=== PATIENT | male | born 1970 | race American Indian/Alaskan Native ===

== ENCOUNTER 2017-06-20 10:03 | Emergency (ER) | payer SELFPAY ==
--- NOTE | 2017-06-20 10:54 | Emergency Department Report ---
Blank Doc - Documentation Documentation: Patient is a 47-year-old male with history of heart murmur. Patient presented to the ER complaining of left-sided chest pain and upper abdominal pain that started yesterday after he was working in his yard. Patient also presented with a right eye redness he is worried that a piece of wood get into his eye. He denies any visual loss. Chest pain protocol rule out MD or different. Patient will need further management.
--- NOTE | 2017-06-20 11:26 | XRay Report ---
Single chest: History: Chest pain. Findings: Normal cardiomediastinal silhouette. Trachea is midline. No consolidation, pneumothorax or pleural effusion. Impression: No acute cardiopulmonary findings.
[2017-06-20 11:39] LABS: Basophils % (Auto) 0.6 % (0.0-1.8); Eosinophils # (Auto) 0.4 K/mm3 (0.0-0.4); Eosinophils % (Auto) 5.5 % (0.0-4.3); Hematocrit 40.3 % (35.5-45.6); Hemoglobin 13.5 gm/dl (11.8-15.2); Lymphocytes # (Auto) 1.4 K/mm3 (1.2-5.4); Lymphocytes % (Auto) 20.4 % (13.4-35.0); Mean Corpuscular HGB Conc 33 % (32-34); Mean Corpuscular Hemoglobin 30 pg (28-32); Mean Corpuscular Volume 89 fl (84-94); Monocytes # (Auto) 0.5 K/mm3 (0.0-0.8); Platelet Count 248 K/mm3 (140-440); Red Blood Count 4.53 M/mm3 (3.65-5.03)
[2017-06-20 11:59] LABS: Alanine Aminotransferase 12 units/L (7-56); Albumin 3.9 g/dL (3.9-5); BUN/Creatinine Ratio 10; Blood Urea Nitrogen 9 mg/dL (9-20); Calcium 8.9 mg/dL (8.4-10.2); Hemolysis Index 15; Lipase 19 units/L (13-60)
[2017-06-20 15:35] LABS: Bilirubin,Urine NEG (Negative); Blood,Urine NEG (Negative); Color,Urine Yellow (Yellow); Mucus,Urine FEW /HPF; Protein,Urine <15 mg/dL mg/dL (Negative); Urobilinogen,Urine < 2.0 mg/dL (<2.0)
[2017-06-20 15:36] LABS: WBC,Urine < 1.0 /HPF (0.0-6.0)
[2017-06-20 15:43] LABS: Amphetamine Screen,Urine PRESUMPTIVE NEGATIVE; Benzodiazepines Screen,Urine PRESUMPTIVE NEGATIVE; Cannabinoid Screen,Urine PRESUMPTIVE NEGATIVE; Cocaine Screen,Urine PRESUMPTIVE NEGATIVE; Methadone Screen,Urine PRESUMPTIVE NEGATIVE; Opiate Screen,Urine PRESUMPTIVE NEGATIVE
[2017-06-20 15:59] VITALS: BP 122/78
--- NOTE | 2017-06-20 16:15 | Emergency Department Report ---
HPI <KARIDAWN - Last Filed: 06/20/17 17:16> - HPI HPI: Patient is a 47-year-old male with history of heart murmur. Patient presented to the ER complaining of left-sided chest pain and upper abdominal pain that started yesterday after he was working in his yard. Patient also presented with a right eye redness he is worried that a piece of wood get into his eye. He denies any visual loss. patient is currently pain free. <DOMJERARDO - Last Filed: 06/25/17 01:48> - General Chief Complaint: Chest Pain Time Seen by Provider: 06/20/17 10:35 ED Past Medical Hx <KARIDAWN - Last Filed: 06/20/17 17:16> - Past Medical History Previous Medical History?: No Hx Hypertension: No - Surgical History Past Surgical History?: No - Social History Smoking Status: Current Every Day Smoker Substance Use Type: Alcohol <DOMJERARDO - Last Filed: 06/25/17 01:48> - Medications Home Medications: Home Medications Medication Instructions Recorded Confirmed Last Taken Type Aspirin [Aspirin BABY CHEW TAB] 81 mg PO QDAY #30 tab.chew 06/20/17 Unknown Rx Famotidine 40 mg PO AC #30 tablet 06/20/17 Unknown Rx Polymyxin B Sulf/Trimethoprim 1 drop OP QID #1 bottle 06/20/17 Unknown Rx [Polytrim Eye Drops 60007cjlks/0.1%] ED Review of Systems ROS: Stated complaint: CHEST/ABD/EYE PAIN Other details as noted in HPI <DAWN PIERCE - Last Filed: 06/20/17 17:16> ROS: Stated complaint: CHEST/ABD/EYE PAIN Other details as noted in HPI Comment: All other systems reviewed and negative Eyes: eye pain Cardiovascular: chest pain <DOMJERARDO - Last Filed: 06/25/17 01:48> Physical Exam - Physical Exam Vital Signs: Vital Signs 06/20/17 06/20/17 06/20/17 10:24 11:15 13:08 Temperature 98.2 F Pulse Rate 80 70 65 Respiratory 16 16 16 Rate Blood Pressure 133/86 Blood Pressure 124/72 119/82 [Left] O2 Sat by Pulse 99 99 99 Oximetry 06/20/17 14:33 Temperature Pulse Rate 60 Respiratory 16 Rate Blood Pressure Blood Pressure 122/78 [Left] O2 Sat by Pulse 99 Oximetry <DAWN PIERCE - Last Filed: 06/20/17 17:16> - Physical Exam Vital Signs: Vital Signs 06/20/17 06/20/17 06/20/17 10:24 11:15 13:08 Temperature 98.2 F Pulse Rate 80 70 65 Respiratory 16 16 16 Rate Blood Pressure 133/86 Blood Pressure 124/72 119/82 [Left] O2 Sat by Pulse 99 99 99 Oximetry 06/20/17 14:33 Temperature Pulse Rate 60 Respiratory 16 Rate Blood Pressure Blood Pressure 122/78 [Left] O2 Sat by Pulse 99 Oximetry Physical Exam: Gen. alert and oriented 3 in no distress Head atraumatic normocephalic Eyes: Right eye redness, abrasion medial Eyes PERR LA EOMI Chest regular rate and rhythm normal S1-S2 lungs clear bilaterally Abdomen soft nondistended Back no point tenderness paravertebral tenderness Neuro no focal deficit. Psych normal mood. <JERARDO FERNANDES - Last Filed: 06/25/17 01:48> ED Course Vital Signs 06/20/17 06/20/17 06/20/17 10:24 11:15 13:08 Temperature 98.2 F Pulse Rate 80 70 65 Respiratory 16 16 16 Rate Blood Pressure 133/86 Blood Pressure 124/72 119/82 [Left] O2 Sat by Pulse 99 99 99 Oximetry 06/20/17 14:33 Temperature Pulse Rate 60 Respiratory 16 Rate Blood Pressure Blood Pressure 122/78 [Left] O2 Sat by Pulse 99 Oximetry <DAWN PIERCE - Last Filed: 06/20/17 17:16> Vital Signs 06/20/17 06/20/17 06/20/17 10:24 11:15 13:08 Temperature 98.2 F Pulse Rate 80 70 65 Respiratory 16 16 16 Rate Blood Pressure 133/86 Blood Pressure 124/72 119/82 [Left] O2 Sat by Pulse 99 99 99 Oximetry 06/20/17 14:33 Temperature Pulse Rate 60 Respiratory 16 Rate Blood Pressure Blood Pressure 122/78 [Left] O2 Sat by Pulse 99 Oximetry <JERARDO FERNANDES - Last Filed: 06/25/17 01:48> ED Medical Decision Making - Lab Data Result diagrams: 06/20/17 11:15 06/20/17 11:15 - Medical Decision Making Patient transferred from Dr. Jose Enrique Fernandes for follow-up of repeat troponin level with history of atypical chest pain, with discomfort in the left anterior chest. First initial troponin level was negative, other labs were unremarkable , EKG was significant primarily for left ventricular hypertrophy and secondary repolarization changes, but no acute findings of STEMI. Patient is stable for discharge, reexamined, has typical discomfort in the left costochondral area, but is otherwise stable, lungs are clear. He does not have a family physician, and should obtain one and follow for repeat examination next week or so if he has persistent discomfort. <DAWN PIERCE Last Filed: 06/20/17 17:16> - Lab Data Result diagrams: 06/20/17 11:15 06/20/17 11:15 <JERARDO FERNANDES Last Filed: 06/25/17 01:48> Critical care attestation.: If time is entered above; I have spent that time in minutes in the direct care of this critically ill patient, excluding procedure time. <DAWN PIERCE Last Filed: 06/20/17 17:16> Critical care attestation.: If time is entered above; I have spent that time in minutes in the direct care of this critically ill patient, excluding procedure time. <JERARDO FERNANDES Last Filed: 06/25/17 01:48> ED Disposition <DAWN PIERCE Filed: 06/20/17 17:16> Is pt being admited?: No Does the pt Need Aspirin: No <JERARDO FERNANDES Last Filed: 06/25/17 01:48> Clinical Impression: Atypical chest pain Eye contusion Qualifiers: Encounter type: initial encounter Laterality: right Qualified Code(s): S05.11XA - Contusion of eyeball and orbital tissues, right eye, initial encounter Disposition: - TO HOME OR SELFCARE Condition: Stable Instructions: Chest Pain (ED) Prescriptions: Aspirin [Aspirin BABY CHEW TAB] 81 mg PO QDAY #30 tab.chew Famotidine 40 mg PO AC #30 tablet Polymyxin B Sulf/Trimethoprim [Polytrim Eye Drops 94391rxsqy/0.1%] 1 drop OP QID #1 bottle Referrals: PRIMARY CARE,MD [Primary Care Provider] - 3-5 Days
== END 2017-06-20 17:25 | disposition home or self-care (01) ==
LOC: ED 10:03
DX: R07.89 Other chest pain (principal); R10.10 Upper abdominal pain, unspecified; H57.8 Other specified disorders of eye and adnexa; F17.200 Nicotine dependence, unspecified, uncomplicated; Z79.899 Other long term (current) drug therapy
CPT/HCPCS: 36415; 71045; 80053; 80307; 81001; 83690; 84484; 85025; 93005; 93010

== ENCOUNTER 2017-08-22 08:18 | Emergency (ER) | payer SELFPAY ==
[2017-08-22] MEDS ORDERED: NORCO 5/325 PO ONE (08:57)
[2017-08-22] MEDS ORDERED: ZOFRAN ODT PO ONE (08:57)
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
--- NOTE | 2017-08-22 09:23 | XRay Report ---
FINAL REPORT EXAM: XR SPINE CERVICAL 2-3V HISTORY: s/p fall w/ LOC TECHNIQUE: Three views cervical spine. PRIORS: None currently available. FINDINGS: Mild disc space narrowing at C4-C5. Moderate to severe disc space narrowing at C5-C7. Mild disc space narrowing C7-T1. Straightening of the normal lordotic alignment. No scoliosis. No suspicious osseous lesions. Lateral masses of C1 are aligned with C2. IMPRESSION: Degenerative discs.
--- NOTE | 2017-08-22 09:44 | Cat Scan Report ---
FINAL REPORT EXAM: CT HEAD/BRAIN WO CON HISTORY: s/p fall hit head + LOC TECHNIQUE: CT of the Head without IV contrast. PRIORS: None currently available. FINDINGS: There is no evidence for acute ischemia. There is no hemorrhage. There is no midline shift. There is no hydrocephalus. There is no mass. Age appropriate rizzo-white matter attenuation is noted. There is no calvarial fracture. Paranasal findings discussed on the maxillofacial CT. IMPRESSION: No acute intracranial findings.
--- NOTE | 2017-08-22 09:51 | Cat Scan Report ---
FINAL REPORT EXAM: CT FACIAL BONES WO CON HISTORY: s/p fall left sided facial pain ? jaw fracture TECHNIQUE: CT of the maxillofacial region without IV contrast. Coronal and sagittal reconstructed images were provided. PRIORS: None currently available. FINDINGS: Soft tissue swelling around the left face and mandibular region. Punctate densities within the soft tissues may represent skin artifacts or foreign bodies. No fluid collection to suggest abscess is present on this noncontrast CT scan. The globes are intact. There is no vitreous hemorrhage. The lenses are unremarkable. There is no retinal hemorrhage. The retro-bulbar regions are grossly negative. There is no orbital osseous fracture. Paranasal sinuses are developed. Moderate mucosal thickening in both maxillary sinuses. Moderate mucosal thickening also noted within the ethmoid sinuses. Mild mucosal thickening in both sphenoid and frontal sinuses. There may be opacification of the frontal ethmoidal and sphenoid ethmoidal recesses. No expansile or destructive features identified. The paranasal osseous structures are intact. Nasal bridge appears intact. The nasal septum is mildly deviated There is no zygomatic arch fracture. There is no fracture of the pterygoid plates. There is no fracture of the mandible. Series 5:52 demonstrates a lytic area at the root of the right upper incisor which may represent a dentigerous cyst or abscess measuring 8.2 mm. Adjacent anterior soft tissue swelling identified. Similar finding noted at the root of the right upper premolar on series 5:52. An a particularly irregular lytic area in the left upper molar on series 5:56. Focal area of subcutaneous gas is adjacent to the left upper molar and there is cortical irregularity and dehiscence at the right incisor and left upper molar. There is no fracture the temporomandibular joints. Temporal bones are unremarkable. Mastoid air cells are aerated. IMPRESSION: No acute fracture. Lytic areas within the root of the teeth may be related to dentigerous lesions or dental root abscesses. Left upper molar region is particularly concerning. Left facial soft tissue swelling. No distinct abscess. Sinus disease.
[2017-08-22 10:28] VITALS: BP 136/96
== END 2017-08-22 10:27 | disposition home or self-care (01) ==
LOC: ED 08:18
DX: S06.0X9A Concussion with loss of consciousness of unspecified duration, initial encounter (principal); S00.83XA Contusion of other part of head, initial encounter; F17.200 Nicotine dependence, unspecified, uncomplicated; K02.9 Dental caries, unspecified; Z79.82 Long term (current) use of aspirin; V19.9XXA Pedal cyclist (driver) (passenger) injured in unspecified traffic accident, initial encounter; Y93.89 Activity, other specified; Y92.89 Other specified places as the place of occurrence of the external cause; Y99.8 Other external cause status
CPT/HCPCS: 70450; 70486; 72040; 99284; Q0162

== ENCOUNTER 2019-03-04 15:01 | Emergency (ER) | payer SELFPAY ==
[2019-03-04] MEDS ORDERED: oxyCODONE /ACETAMINOPHEN 5-325MG TAB PO ONE (15:26)
--- NOTE | 2019-03-04 15:33 | Emergency Department Report ---
HPI - General Chief Complaint: Fall Time Seen by Provider: 03/04/19 15:12 - HPI HPI: 49-year-old -[place] male presents to the emergency department with complaint of headache, neck pain, back pain after falling through the roof yesterday and into the house. He says that he hit his head and passed out. He says he is unsure how long he was unconscious and thinks that he woke up at some point this morning not having realized that he fell through the roof. Since that time the patient has been ambulatory. He has not taken anything for her symptoms prior to presentation. He denies any nausea or vomiting, numbness or paresthesias, problems with bowel or bladder. No past medical history. ED Past Medical Hx - Past Medical History Previous Medical History?: No Hx Hypertension: No - Surgical History Past Surgical History?: No - Social History Smoking Status: Current Every Day Smoker Substance Use Type: None - Medications Home Medications: Home Medications Medication Instructions Recorded Confirmed Last Taken Type Aspirin [Aspirin BABY CHEW TAB] 81 mg PO QDAY #30 tab.chew 06/20/17 Unknown Rx Famotidine 40 mg PO AC #30 tablet 06/20/17 Unknown Rx Polymyxin B Sulf/Trimethoprim 1 drop OP QID #1 bottle 06/20/17 Unknown Rx [Polytrim Eye Drops [id number]/0.1%] Acetaminophen/Codeine [Tylenol 1 tab PO Q6H PRN #10 tab 08/22/17 Unknown Rx /Codeine # 3 tab] Amoxicillin/Potassium Clav 1 each PO BID #14 tablet 08/22/17 Unknown Rx [Augmentin 875-125 Tablet] Chlorhexidine Mouthwash [Peridex] 15 ml MM BID #1 bottle 08/22/17 Unknown Rx Ibuprofen [Motrin] 600 mg PO Q8H PRN #25 tablet 08/22/17 Unknown Rx HYDROcodone/APAP 5-325 [[place] 1 each PO Q6HR PRN #10 tablet 03/04/19 Unknown Rx 5/325] ED Review of Systems ROS: Stated complaint: FELL THROUGH ROOF Other details as noted in HPI Comment: All other systems reviewed and negative Constitutional: denies: chills, fever Eyes: denies: eye pain, vision change ENT: denies: ear pain, throat pain Respiratory: denies: cough, shortness of breath Cardiovascular: syncope. denies: chest pain Gastrointestinal: denies: abdominal pain, vomiting Genitourinary: denies: dysuria, discharge Musculoskeletal: back pain, myalgia Skin: denies: rash, lesions Neurological: headache. denies: weakness, numbness, paresthesias Physical Exam - Physical Exam Vital Signs: Vital Signs 03/04/19 15:09 Temperature 97.7 F Pulse Rate 76 Respiratory 16 Rate Blood Pressure 145/91 O2 Sat by Pulse 100 Oximetry Physical Exam: GENERAL: The patient is well-developed well-nourished. HEENT: Normocephalic. Atraumatic. Patient has moist mucous membranes. EYES: Extraocular motions are intact. Pupils equal and reactive to light bilaterally. NECK: Supple. Trachea is midline. There is both midline and bilateral paraspinal tenderness to palpation but no step-off or deformity. CHEST/LUNGS: Clear to auscultation. There is no respiratory distress noted. HEART/CARDIOVASCULAR: Regular. There is no tachycardia. There is no murmur. ABDOMEN: Abdomen is soft, nontender. Patient has normal bowel sounds. There is no abdominal distention. SKIN:Skin is warm and dry. NEURO: The patient is awake, alert, and oriented. The patient is cooperative. The patient has no focal neurologic deficits. Normal speech. Cranial nerves II through XII grossly intact. MUSCULOSKELETAL: There is no tenderness or deformity. There is no limitation range of motion. There is no evidence of acute injury. BACK: There is both midline and bilateral paraspinal tenderness to palpation to the lumbar spine in the mid to lower thoracic spine but no obvious step-off or deformity. ED Course Vital Signs 03/04/19 15:09 Temperature 97.7 F Pulse Rate 76 Respiratory 16 Rate Blood Pressure 145/91 O2 Sat by Pulse 100 Oximetry ED Medical Decision Making - Lab Data Result diagrams: 03/04/19 16:08 03/04/19 16:08 - Radiology Data Radiology results: report reviewed, image reviewed interpreted by me: X-ray of the thoracic and lumbar spine did not show any fracture, subluxation, or any acute process. CT CERVICAL SPINE: 03/04/2019 INDICATION / CLINICAL INFORMATION: Trauma. COMPARISON: None available. FINDINGS: CT images of the cervical spine were obtained. Images are evaluated in the axial, coronal, and sagittal planes. There is no evidence of acute abnormality. Right convex scoliosis of the cervical spine is present. body alignment is otherwise unremarkable. There is some degenerative disc space narrowing at the C5-6 and C6-7 levels. LEVEL BY LEVEL ANALYSIS: . CRANIOCERVICAL JUNCTION: Unremarkable. PARASPINAL STRUCTURES: Unremarkable IMPRESSION: No acute abnormality. Mild degenerative change. CT BRAIN: 03/04/2019 INDICATION / CLINICAL INFORMATION: Trauma. COMPARISON: 08/22/2017 FINDINGS: BRAIN/INTRACRANIAL STRUCTURES: Unenhanced CT images of the brain demonstrate no evidence of acute intracranial abnormality. Ventricles and sulci are normal in size and shape for a patient of this age. There is no evidence of hemorrhage or mass. There are no abnormal extra-axial fluid collections. There is been no change when compared to 08/22/2017. EXTRACRANIAL STRUCTURES: Unremarkable. IMPRESSION: No acute abnormality. - Medical Decision Making This patient presents with a mild headache, neck pain and back pain after allegedly falling through his roof, while fixing it, and onto the floor of the room below. Since being in the emergency department the patient is awake and alert, without any focal, motor or sensory deficits, and he has his cranial nerves intact. CT scan of the head without contrast does not show any bleed, shift, mass, ischemia, or any other acute process. CT of the cervical spine did not show any fracture, subluxation or any acute process. X-rays were done of the thoracic and lumbar spines that did not show any fracture, subluxation, or any acute processes. The patient was seen ambulatory in the emergency department and appears stable. Despite his back. He does not have any problems with bowel or bladder, numbness or paresthesias, or any neurological deficits. He appears low suspicion for any of the emergent back conditions such as cauda equina or cord syndrome. Patient was given referrals for orthopedist and instructed to follow-up with primary care. He will return to the emergency Department with any worsening of his symptoms or any acute distress. - Differential Diagnosis muscle spasm, contusion, fracture, dislocation, subluxation Critical Care Time: No Critical care attestation.: If time is entered above; I have spent that time in minutes in the direct care of this critically ill patient, excluding procedure time. ED Disposition Clinical Impression: Neck pain Fall from roof Qualifiers: Encounter type: initial encounter Qualified Code(s): W13.2XXA - Fall from, out of or through roof, initial encounter Back pain Qualifiers: Back pain location: low back pain Chronicity: acute Back pain laterality: bilateral Sciatica presence: without sciatica Qualified Code(s): M54.5 - Low back pain Disposition: TO HOME OR SELFCARE Is pt being admited?: No Condition: Stable Instructions: Back Pain (ED), Fall Prevention (ED) Additional Instructions: Please follow up with a primary care physician in the next few days. I am giving you a referral for two local orthopedic groups, Dr. Le[facility] and [facility], to follow up regarding your neck and back pains. Return to the emergency Department with any worsening of your symptoms or any acute distress. You have been prescribed a pain medication that can be sedating. Therefore this medication cannot be taken prior to working, driving, being responsible for children, and cannot be mixed with alcohol any quantity. Prescriptions: HYDROcodone/APAP 5-325 [[place] 5/325] 1 each PO Q6HR PRN #10 tablet PRN Reason: Pain Referrals: JOANN DURAN MD [Staff Physician] - 2-3 Days ANABEL LEÓN MD [Staff Physician] - 2-3 Days [facility] [Outside] - 2-3 Days [facility] [Provider Group] - 2-3 Days Time of Disposition: 17:05
--- NOTE | 2019-03-04 16:07 | XRay Report ---
LUMBAR SPINE, 3 VIEWS INDICATION / CLINICAL INFORMATION: Trauma /fall through roof. COMPARISON: None available. FINDINGS: Vertebral body heights and disc spaces are well-preserved. Alignment is normal. I do not see any sugg estion for acute fracture or traumatic malalignment. No significant degenerative change noted. IMPRESSION: No evidence for fracture. Signer Name: Noemi Dougherty MD Signed: 03/04/2019 4:03 PM Workstation Name: [id number]
--- NOTE | 2019-03-04 16:08 | XRay Report ---
THORACIC SPINE, 4 VIEWS INDICATION / CLINICAL INFORMATION: Trauma /fall through roof. COMPARISON: None available. FINDINGS: Thoracic spine appears to be intact. No visible fracture or malalignment identified. I do not see sig nificant degenerative change. IMPRESSION: No evidence for thoracic spine fracture or malalignment. Signer Name: Noemi Dougherty MD Signed: 03/04/2019 4:04 PM Workstation Name: [id number]
[2019-03-04 16:23] LABS: Basophils # (Auto) 0.1 K/mm3 (0.0-0.1); Basophils % (Auto) 1.2 % (0.0-1.8); Eosinophils # (Auto) 0.3 K/mm3 (0.0-0.4); Eosinophils % (Auto) 5.1 % (0.0-4.3); Hematocrit 37.9 % (35.5-45.6); Hemoglobin 12.7 gm/dl (11.8-15.2); Lymphocytes % (Auto) 34.6 % (13.4-35.0); Mean Corpuscular HGB Conc 34 % (32-34); Mean Corpuscular Volume 89 fl (84-94); Monocytes # (Auto) 0.5 K/mm3 (0.0-0.8); Platelet Count 249 K/mm3 (140-440); Red Blood Count 4.24 M/mm3 (3.65-5.03); Red Cell Distribution Width 14.2 % (13.2-15.2)
[2019-03-04 16:37] LABS: Alanine Aminotransferase 13 units/L (7-56); Albumin 3.6 g/dL (3.9-5); BUN/Creatinine Ratio 4; Blood Urea Nitrogen 3 mg/dL (9-20); Calcium 8.9 mg/dL (8.4-10.2); Hemolysis Index 31
--- NOTE | 2019-03-04 16:43 | Cat Scan Report ---
CT BRAIN: 03/04/2019 INDICATION / CLINICAL INFORMATION: Trauma. COMPARISON: 08/22/2017 FINDINGS: BRAIN/INTRACRANIAL STRUCTURES: Unenhanced CT images of the brain demonstrate no evidence of acute int racranial abnormality. Ventricles and sulci are normal in size and shape for a patient of this age. There is no evidence of hemorrhage or mass. There are no abnormal extra-axial fluid collections. There is been no change when compared to 08/22/2017. EXTRACRANIAL STRUCTURES: Unremarkable. IMPRESSION: No acute abnormality. All CT scans at this location are performed using dose reduction to ALARA by means of automated expos ure control. Signer Name: Mandeep Stanley MD Signed: 03/04/2019 4:39 PM Workstation Name: [id number]
--- NOTE | 2019-03-04 16:46 | Cat Scan Report ---
CT CERVICAL SPINE: 03/04/2019 INDICATION / CLINICAL INFORMATION: Trauma. COMPARISON: None available. FINDINGS: CT images of the cervical spine were obtained. Images are evaluated in the axial, coronal, and sagitt al planes. There is no evidence of acute abnormality. Right convex scoliosis of the cervical spine is present. body alignment is otherwise unremarkab le. There is some degenerative disc space narrowing at the C5-6 and C6-7 levels. LEVEL BY LEVEL ANALYSIS: . CRANIOCERVICAL JUNCTION: Unremarkable. PARASPINAL STRUCTURES: Unremarkable IMPRESSION: No acute abnormality. Mild degenerative change. All CT scans at this location are performed using dose reduction to ALARA by means of automated expos ure control. Signer Name: Mandeep Stanley MD Signed: 03/04/2019 4:42 PM Workstation Name: [email or web address]
[2019-03-04 19:45] VITALS: BP 132/84
== END 2019-03-04 17:20 | disposition home or self-care (01) ==
LOC: ED 15:01
DX: M54.2 Cervicalgia (principal); M54.5 Low back pain; R51 Headache; W13.2XXA Fall from, out of or through roof, initial encounter; Y93.89 Activity, other specified; Y92.89 Other specified places as the place of occurrence of the external cause; Y99.8 Other external cause status; F17.200 Nicotine dependence, unspecified, uncomplicated; Z79.899 Other long term (current) drug therapy
CPT/HCPCS: 36415; 70450; 72072; 72100; 72125; 80053; 82550; 82803; 85025

== ENCOUNTER → 2021-09-22 15:40 | Emergency (ER) | payer SELFPAY | END | disposition left against medical advice (07) | LOC: ED 15:40 | DX: R21 Rash and other nonspecific skin eruption (principal); Z53.21 Procedure and treatment not carried out due to patient leaving prior to being seen by health care provider ==